=== PATIENT | female | born 1965 | race Caucasian/White ===

== ENCOUNTER 2018-05-02 12:25 | Outpatient (REF) | payer BC, SELFPAY ==
[2018-05-02 22:24] LABS: Anion Gap 11.8 mmol/L (3-11); BUN 13 mg/dL (7-18); CO2 28.2 mmol/L (21.0-32.0); Calcium 10.4 mg/dL (8.5-10.1); Chloride 100 mmol/L (98-107); Glucose 83 mg/dL (70-100); Potassium 4.8 mmol/L (3.5-5.1); Sodium 140 mmol/L (136-145); TSH 4.95 uIU/mL (0.358-3.74)
== END 2018-05-02 12:45 ==
LOC: NCHCN 12:25
PROVIDERS: PCP Family Medicine; Visit Provider Family Medicine
DX: E89.0 Postprocedural hypothyroidism (principal); R03.0 Elevated blood-pressure reading, without diagnosis of hypertension; C50.911 Malignant neoplasm of unspecified site of right female breast
CPT/HCPCS: 80048; 84443

== ENCOUNTER 2018-06-11 08:32 | Outpatient (REF) | payer BC, SELFPAY ==
[2018-06-11 20:58] LABS: Calcium 9.8 mg/dL (8.5-10.1); TSH 1.08 uIU/mL (0.358-3.74)
== END 2018-06-11 08:52 ==
LOC: NCHCN 08:32
PROVIDERS: PCP Family Medicine; Visit Provider Family Medicine
DX: E89.0 Postprocedural hypothyroidism (principal)
CPT/HCPCS: 82310; 84443

== ENCOUNTER 2018-10-31 12:11 | Outpatient (REF) | payer BC, SELFPAY ==
--- NOTE | 2018-10-31 08:23 | PAPFT_PTH ---
PATIENT: India Winslow LOC: [facility] U#:[id number] AGE/SX: 52/F ROOM: RE10/31/[address]: Nyla Gonzalez : 1965 BED: DIS: 10/31/2018 SPEC #: [id number] RECD: 11/01/18 12:51 STATUS: MATEO REQ #: [id number] JOEL: 10/31/18 08:[address]: Nyla Gonzalez DEPT: [facility] Cytology RECD BY: Olga Garcia ENTERED: 11/01/18 12:52 SP TYPE: PAPFT OTHR DR: Gia Laughlin Tissues: 1 - CX/ENDOCX FOR PAP SMEARS Procedures: PAP THIN PREP/[facility] Screening HPV DNA PROBE Comments: [id number]
== END 2018-10-31 12:31 ==
LOC: NCHCN 12:11
PROVIDERS: PCP Family Medicine; Visit Provider Family Medicine
DX: Z12.4 Encounter for screening for malignant neoplasm of cervix (principal); Z11.51 Encounter for screening for human papillomavirus (HPV)
CPT/HCPCS: 88142; 87624

== ENCOUNTER 2019-11-13 14:23 | Outpatient (REF) | payer BC, SELFPAY ==
[2019-11-14 13:44] LABS: Anion Gap 9.6 mmol/L (3-11); BUN 21 mg/dL (7-18); CO2 25.4 mmol/L (21.0-32.0); CREATININE 0.92 mg/dL (0.55-1.02); Calcium 9.7 mg/dL (8.5-10.1); Chloride 103 mmol/L (98-107); Glucose 95 mg/dL (74-106); Potassium 4.2 mmol/L (3.5-5.1); Sodium 138 mmol/L (136-145)
== END 2019-11-13 14:43 ==
LOC: NCHCN 14:23
PROVIDERS: PCP Family Medicine; Visit Provider Family Medicine
DX: Z00.00 Encounter for general adult medical examination without abnormal findings (principal); E89.0 Postprocedural hypothyroidism; R03.0 Elevated blood-pressure reading, without diagnosis of hypertension
CPT/HCPCS: 80048; 84443

== ENCOUNTER 2020-11-23 09:49 | Outpatient (REF) | payer BC, SELFPAY ==
[2020-11-23 13:56] LABS: Anion Gap 12.6 mmol/L (3-11); BUN 13 mg/dL (7-18); CO2 25.4 mmol/L (21.0-32.0); CREATININE 0.8 mg/dL (0.55-1.02); Calcium 10.3 mg/dL (8.5-10.1); Calculated LDL 227 mg/dL (<100); Chloride 103 mmol/L (98-107); Cholesterol 324 mg/dL (<200); Glucose 92 mg/dL (74-106); HDL Cholesterol 67 mg/dL (40-60); Sodium 141 mmol/L (136-145); TSH 0.22 uIU/mL (0.36-3.74); Triglyceride 151 mg/dL (<150)
== END 2020-11-23 09:50 | disposition home or self-care (01) ==
LOC: NCHCN 09:49
PROVIDERS: PCP Family Medicine; Visit Provider Family Medicine
DX: Z00.00 Encounter for general adult medical examination without abnormal findings (principal); E89.0 Postprocedural hypothyroidism; E66.3 Overweight; Z13.220 Encounter for screening for lipoid disorders
CPT/HCPCS: 80048; 80061; 84443

== ENCOUNTER 2021-02-01 13:52 | Outpatient (REF) | payer BC, SELFPAY ==
[2021-02-01 14:49] LABS: Calculated LDL 213 mg/dL (<100); Cholesterol 291 mg/dL (<200); HDL Cholesterol 60 mg/dL (40-60); Triglyceride 91 mg/dL (<150)
== END 2021-02-01 13:53 | disposition home or self-care (01) ==
LOC: NCHCN 13:52
PROVIDERS: PCP Family Medicine; Visit Provider Family Medicine
DX: E89.0 Postprocedural hypothyroidism (principal); Z13.220 Encounter for screening for lipoid disorders
CPT/HCPCS: 80061; 84443

== ENCOUNTER 2021-10-11 14:43 | Outpatient (REF) | payer BC, SELFPAY ==
[2021-10-11 18:28] LABS: ALT 23 U/L (14-59); AST 18 U/L (15-37); Albumin 4.1 g/dL (3.4-5.0); Alkaline Phosphatase 72 U/L (46-116); Anion Gap 11.5 mmol/L (3-11); BUN 19 mg/dL (7-18); Bilirubin, Total 0.3 mg/dL (0.2-1.0); CO2 23.5 mmol/L (21.0-32.0); CREATININE 0.7 mg/dL (0.55-1.02); Calcium 9.5 mg/dL (8.5-10.1); Calculated LDL 184 mg/dL (<100); Chloride 106 mmol/L (98-107); Cholesterol 262 mg/dL (<200); Glucose 89 mg/dL (74-106); HDL Cholesterol 54 mg/dL (40-60); Potassium 4.5 mmol/L (3.5-5.1); Sodium 141 mmol/L (136-145); TSH 1.07 uIU/mL (0.36-3.74); Total Protein 7.4 g/dL (6.4-8.2); Triglyceride 123 mg/dL (<150)
[2021-10-13 05:26] LABS: Vitamin D 25 Total 34.5 ng/mL (30-100)
== END 2021-10-11 14:44 | disposition home or self-care (01) ==
LOC: NCHCN 14:43
PROVIDERS: PCP Family Medicine; Visit Provider Family Medicine
DX: Z00.00 Encounter for general adult medical examination without abnormal findings (principal); E78.5 Hyperlipidemia, unspecified; E89.0 Postprocedural hypothyroidism; E55.9 Vitamin D deficiency, unspecified
CPT/HCPCS: 80053; 80061; 82306; 84443

== ENCOUNTER 2022-10-13 15:11 | Outpatient (REF) | payer BC, SELFPAY ==
[2022-10-13 16:00] LABS: Anion Gap 10.3 mmol/L (3-11); BUN 12 mg/dL (7-18); CO2 23.7 mmol/L (21.0-32.0); CREATININE 0.8 mg/dL (0.55-1.02); Calcium 9.8 mg/dL (8.5-10.1); Calculated LDL 205 mg/dL (<100); Chloride 107 mmol/L (98-107); Cholesterol 280 mg/dL (<200); Estimated GFR 85.89 (mL/min/1.73m2); Glucose 100 mg/dL (74-106); HDL Cholesterol 51 mg/dL (40-60); Potassium 4.3 mmol/L (3.5-5.1); Sodium 141 mmol/L (136-145); TSH 2.56 uIU/mL (0.36-3.74); Triglyceride 124 mg/dL (<150)
== END 2022-10-13 15:12 | disposition home or self-care (01) ==
LOC: NCHCN 15:11
PROVIDERS: PCP Family Medicine; Visit Provider Family Medicine
DX: E78.5 Hyperlipidemia, unspecified (principal); R03.0 Elevated blood-pressure reading, without diagnosis of hypertension; E89.0 Postprocedural hypothyroidism
CPT/HCPCS: 80048; 80061; 84443

== ENCOUNTER 2022-12-29 15:00 | Outpatient (REF) | payer BC, SELFPAY ==
[2022-12-29 14:49] LABS: ALT 33 U/L (14-59); AST 28 U/L (15-37); Alkaline Phosphatase 72 U/L (46-116); Bilirubin, Direct 0.1 mg/dL (0.0-0.2); Bilirubin, Total 0.4 mg/dL (0.2-1.0); Total Protein 7.4 g/dL (6.4-8.2)
[2022-12-29 15:13] LABS: Calculated LDL 142 mg/dL (<100); Cholesterol 217 mg/dL (<200); HDL Cholesterol 61 mg/dL (40-60); Triglyceride 71 mg/dL (<150)
== END 2022-12-29 15:01 | disposition home or self-care (01) ==
LOC: NCHCN 15:00
PROVIDERS: PCP Family Medicine; Visit Provider Family Medicine
DX: E78.5 Hyperlipidemia, unspecified (principal)
CPT/HCPCS: 80061; 80076

== ENCOUNTER 2024-04-18 12:20 | Outpatient (REF) | payer BC, SELFPAY ==
[2024-04-18 14:40] LABS: Anion Gap 10.9 mmol/L (3-11); BUN 13 mg/dL (7-18); CO2 22.1 mmol/L (21.0-32.0); CREATININE 0.8 mg/dL (0.55-1.02); Calculated LDL 121 mg/dL (<100); Chloride 110 mmol/L (98-107); Cholesterol 198 mg/dL (<200); Estimated GFR 84.82 (mL/min/1.73m2); Glucose 89 mg/dL (74-106); HDL Cholesterol 55 mg/dL (40-60); Potassium 4.4 mmol/L (3.5-5.1); Sodium 143 mmol/L (136-145); TSH 2.46 uIU/mL (0.36-3.74); Triglyceride 110 mg/dL (<150)
== END 2024-04-18 12:21 | disposition home or self-care (01) ==
LOC: NCHCN 12:20
PROVIDERS: PCP Family Medicine; Visit Provider Family Medicine
DX: E03.9 Hypothyroidism, unspecified (principal); E78.5 Hyperlipidemia, unspecified
CPT/HCPCS: 80048; 80061; 84443